=== PATIENT | female | born 1945 | race Caucasian/White ===

== ENCOUNTER 2018-04-25 18:25 | Emergency (ER) | payer MEDICARE ==
[2018-04-25] MEDS ORDERED: Bacitracin Zinc 1 Packet ONE (18:48)
== END 2018-04-25 19:03 | disposition home or self-care (01) ==
LOC: SCSER 18:25
DX: S51.812A Laceration without foreign body of left forearm, initial encounter (principal); I25.10 Atherosclerotic heart disease of native coronary artery without angina pectoris; E78.5 Hyperlipidemia, unspecified; F32.9 Major depressive disorder, single episode, unspecified; Z79.899 Other long term (current) drug therapy; W45.8XXA Other foreign body or object entering through skin, initial encounter
CPT/HCPCS: 99282

== ENCOUNTER 2018-07-18 19:16 | Emergency (ER) | payer MEDICARE ==
[2018-07-18] MEDS ORDERED: Adacel (T-DAP) 0.5 ML SYRINGE ONE (19:42)
== END 2018-07-18 20:13 | disposition home or self-care (01) ==
LOC: SCSER 19:16
DX: S81.801A Unspecified open wound, right lower leg, initial encounter (principal); F32.9 Major depressive disorder, single episode, unspecified; I25.10 Atherosclerotic heart disease of native coronary artery without angina pectoris; E78.5 Hyperlipidemia, unspecified; W20.8XXA Other cause of strike by thrown, projected or falling object, initial encounter
CPT/HCPCS: 90471; 90715

== ENCOUNTER 2018-07-20 13:38 | Emergency (ER) | payer MEDICARE | END 2018-07-20 14:55 | disposition home or self-care (01) | LOC: SCSER 13:38 | DX: F32.9 Major depressive disorder, single episode, unspecified (principal); E78.5 Hyperlipidemia, unspecified; L76.31 Postprocedural hematoma of skin and subcutaneous tissue following a dermatologic procedure; I25.10 Atherosclerotic heart disease of native coronary artery without angina pectoris ==

== ENCOUNTER 2022-08-19 16:24 | Outpatient (CLI) | payer MEDICARE | END 2022-08-19 16:25 | disposition home or self-care (01) | LOC: ER/OP 16:24 | PROVIDERS: ATTEND Family Medicine | DX: M79.89 Other specified soft tissue disorders (principal) ==